=== PATIENT | female | born 1970 | race Caucasian/White ===

== ENCOUNTER 2018-11-23 08:00 | Outpatient (CLI) | payer OTHER ==
[2014-01-06 06:11] VITALS: BMI 23.3
[~2018-11-23 08:00] MED LIST: ADVIL200 MG PO; DEMEROL50 MG PO; RECLIPSEN1 TAB PO
== END 2018-11-23 09:00 | disposition home or self-care (01) ==
LOC: D.MAMMO 08:00
DX: Z12.31 Encounter for screening mammogram for malignant neoplasm of breast (principal)